=== PATIENT | female | born 1960 | race Caucasian/White ===

== ENCOUNTER 2017-11-02 19:03 | Emergency (ER) | payer OTHER, MEDICAID, SELFPAY ==
[2017-11-02 19:06] VITALS: BP 147/90; PULSE 91; RESP 18; TEMP 36.8; O2SAT 97; BMI 21.4
== END 2017-11-02 22:59 | disposition left against medical advice (07) ==
DX: S61.411A Laceration without foreign body of right hand, initial encounter (principal)
CPT/HCPCS: 99282